=== PATIENT | female | born 1940 | race Hispanic/Latino ===

== ENCOUNTER → 2020-03-21 | Outpatient (CLI) | payer MEDICARE ==
[~2020-03-21] MED LIST: LIDOCAINE HCL 1% LOCAL INJ 20 ML VIAL ONE
== END ==
LOC: DX 08:56
PROVIDERS: ATTEND Internal Medicine Infectious Disease
DX: R78.81 Bacteremia (principal)
CPT/HCPCS: 36589; J2001